=== PATIENT | male | born 1945 | race Two or more races ===

== ENCOUNTER → 2024-01-11 | Outpatient (CLI) | payer OTHER ==
[2024-01-11 12:38] LABS: African American GFR (CKD) >90 (>60 ml/min/1.73 sqM); Blood Urea Nitrogen 11 mg/dL (9-20); Non-African American GFR(CKD) 79 (>60 ml/min/1.73 sqM)
--- NOTE | 2024-01-11 13:37 | CT ---
Exam: CT Angiography of the Chest. Date: 01/11/2024. Comparison: None History: Aneurysm. Technique: CT examination of the chest was performed without and following the intravenous administra tion of 100 mL of Isovue-300. CT dose lowering techniques were used, to include: automated exposure c ontrol, adjustment for patient size, and/or use of iterative reconstruction. FINDINGS: Mediastinum and Tana: There is no axillary, mediastinal or hilar lymphadenopathy. Pleural and Pericardial spaces: There are no pleural or pericardial effusions. Upper Abdomen: There is a small sliding hiatal hernia. Diffuse decreased attenuation the liver is com patible with fatty infiltration. The gallbladder is distended and likely contains sludge. The visuali zed upper abdomen otherwise appears unremarkable. Cardiovascular: There is dilation of ascending thoracic aorta up to 4.67 m. No evidence of aortic dis section is seen. Mild coronary artery calcification is seen within the left anterior descending. Pulmonary Artery: There are no filling defects in the pulmonary arteries. Lung Parenchyma and Airways: There is mild upper lobe predominant centrilobular emphysema. Scattered mild inflammatory airway changes are also seen diffusely. There is no focal area of consolidation. Bones: No fracture or aggressive osseous lesion. IMPRESSION: 1. 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 2. No evidence of thoracic aortic dissection. 3. Mild smoking-related change. 4. Hepatic steatosis. 5. Small hiatal hernia. 6. Mild coronary artery calcifications.
== END | disposition home or self-care (01) ==
LOC: RADCTMAIN 11:49
PROVIDERS: ATTEND Family Medicine
DX: I71.21 Aneurysm of the ascending aorta, without rupture (principal); K76.0 Fatty (change of) liver, not elsewhere classified; K44.9 Diaphragmatic hernia without obstruction or gangrene; I25.10 Atherosclerotic heart disease of native coronary artery without angina pectoris
CPT/HCPCS: 82565; 84520; 71275; 36415; Q9967

== ENCOUNTER → 2024-01-19 | Outpatient (CLI) | payer OTHER ==
--- NOTE | 2024-01-19 18:54 | CA ---
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 18 - 58 / 22 - 52 cm??? LA Volume Index 12.8 cm???/m??? 16 - 28 cm???/m??? M-MODE Aortic Root Diameter MM 4.6 cm LA Systolic Diameter MM 2.0 cm LA Ao Ratio MM 0.4 AV Cusp Separation MM 2.1 cm DOPPLER AV Peak Velocity 152.5 cm/s AV Peak Gradient 9.3 mmHg AV Mean Velocity 98.2 cm/s AV Mean Gradient 4.5 mmHg AV Velocity Time Integral 33.1 cm AI Peak Velocity 450.4 cm/s AI Peak Gradient 81.1 mmHg AI Pressure Half Time 689.6 ms AI ERO PISA 0.7 cm??? LVOT Peak Velocity 109.0 cm/s LVOT Peak Gradient 4.7 mmHg LVOT Velocity Time Integral 26.2 cm LVOT Stroke Volume 92.7 cm??? LVOT Stroke Volume Index 46.9 ml/m??? LVOT Cardiac Index 3001.0 cm???/min???m??? AV Area Cont Eq vti 2.8 cm??? AV Area Cont Eq pk 2.5 cm??? MV Area PHT 2.5 cm??? Mitral E Point Velocity 68.7 cm/s Mitral A Point Velocity 107.7 cm/s Mitral E to A Ratio 0.6 MV Deceleration Time 309.4 ms MV E' Velocity 4.8 cm/s Mitral E to MV E' Ratio 14.3 TR Peak Velocity 223.8 cm/s TR Peak Gradient 20.0 mmHg Right Ventricular Systolic Press 25.0 mmHg FINDINGS Left Ventricle Mildly increased left ventricular wall thickness. Left ventricular cavity size normal. Normal left ventricular systolic function with no obvious regional wall motion abnormalities. Grade 1 diastolic dysfunction. Right Ventricle Normal right ventricular size and function. Right ventricular systolic pressure within normal limits. Right Atrium Normal right atrial size. Left Atrium Normal left atrial size. Mitral Valve Structurally normal mitral valve. Moderate mitral regurgitation. Mild mitral annular calcification. Aortic Valve Trileaflet aortic valve. No aortic stenosis. Moderate aortic regurgitation. Tricuspid Valve Structurally normal tricuspid valve. Mild tricuspid regurgitation. Pulmonic Valve Structurally normal pulmonic valve. Pericardium No pericardial effusion. Aorta Moderately dilated proximal ascending aorta (tube). Moderate aortic dilatation at the level of the sinuses of valsalva (root). 4.6 cm CONCLUSIONS Normal LV systolic function Moderate aortic insufficiency Moderate mitral regurgitation Dilated aorta at 4.6 cm Previewed by: Dr. Yrn Morse MD (Electronically Signed) Final Date: 19 January 2024 18:53
== END | disposition home or self-care (01) ==
LOC: RADECHMAIN 14:19
PROVIDERS: ATTEND Family Medicine
DX: I34.0 Nonrheumatic mitral (valve) insufficiency (principal); I35.1 Nonrheumatic aortic (valve) insufficiency; I71.10 Thoracic aortic aneurysm, ruptured, unspecified
CPT/HCPCS: 93306

== ENCOUNTER → 2025-01-13 | Outpatient (CLI) | payer OTHER ==
[2025-01-13 13:38] LABS: African American GFR (CKD) >90 (>60 ml/min/1.73 sqM); Blood Urea Nitrogen 9 mg/dL (9-20); Non-African American GFR(CKD) 82 (>60 ml/min/1.73 sqM)
--- NOTE | 2025-01-13 14:48 | CT ---
EXAMINATION TYPE: CT angio chest CT DLP: 676 mGycm, Automated exposure control for dose reduction was used. DATE OF EXAM: 01/13/2025 2:32 PM COMPARISON: CTA chest 01/11/2024 CLINICAL INDICATION:Male, 79 years old with history of I71.20 THORACIC AORTIC ANEURYSM; Thoracic aort ic aneurysm w/o rupture TECHNIQUE/CONTRAST: CTA scan of the thorax is performed without and with IV Contrast, patient injected with 100 mL of Iso enoc 370. 3D reconstructed images are created on an independent workstation and reviewed.. FINDINGS: Lungs/Pleura: No evidence of focal consolidation, pleural effusion or pneumothorax. Biapical pleural parenchymal scarring. Mild centrilobular emphysematous changes. No suspicious pulmonary nodule or mas s. Airway: Large airways are patent. Heart: Size within normal limits.Trace anterior pericardial effusion. Mild coronary artery calcificat ions present. Vasculature: Conventional three-vessel aortic arch. Mild atherosclerotic calcification of the aorta a nd its branches. No intramural hematoma or dissection. Stable fusiform ascending thoracic aortic aneu rysm measuring up to 4.6 cm. Stable aneurysm dilatation of the aortic root measuring up to 4.8 cm. Th e descending thoracic aorta measures up to 2.7 cm. No evidence for pulmonary embolism. Visualized por tions of the celiac access, SMA, and single bilateral renal arteries are widely patent. Mediastinum: No gross evidence of adenopathy. Musculoskeletal: No acute osseous abnormalities. Mild multilevel anterior osteophytosis of the lower thoracic spine. Soft Tissues: Unremarkable. Lower neck: No significant findings. Upper Abdomen: Diffuse low-attenuation to the liver parenchyma. Distended hyperdense gallbladder agai n measuring 11.5 x 5.8 cm in size. Small hiatal hernia. IMPRESSION: 1. Stable aneurysm dilatation of the aortic root and the ascending thoracic aorta measuring 4.8 and 4 .6 cm respectively. No evidence of intramural hematoma or dissection. 2. Stable hydropic hyperdense gallbladder suggesting gallstones and/or sludge. 3. Hepatic steatosis. 4. Small hiatal hernia. 5. Mild emphysematous changes. [facility], , 01/13/2025 2:46 PM
== END | disposition home or self-care (01) ==
LOC: RADCTMAIN 12:32
PROVIDERS: ATTEND Surgery
DX: I71.21 Aneurysm of the ascending aorta, without rupture (principal); K76.0 Fatty (change of) liver, not elsewhere classified; J43.2 Centrilobular emphysema; K44.9 Diaphragmatic hernia without obstruction or gangrene
CPT/HCPCS: 82565; 84520; 71275; 36415; Q9967